=== PATIENT | female | born 1970 | race Two or more races ===

== ENCOUNTER 2021-02-20 06:40 | Day surgery (SDC) | payer OTHER | END 2021-02-20 17:10 | disposition home or self-care (01) | LOC: CIR.AMB 06:40 | PROVIDERS: ATTEND Colon & Rectal Surgery | DX: K62.0 Anal polyp (principal); K64.8 Other hemorrhoids; K64.4 Residual hemorrhoidal skin tags; Z20.822 Contact with and (suspected) exposure to COVID-19 ==